=== PATIENT | male | born 1955 | race Caucasian/White ===

== ENCOUNTER 2023-12-30 07:34 | Outpatient (CLI) | payer MEDICARE, OTHER, SELFPAY ==
--- NOTE | 2023-12-30 07:39 | USCV_ITS ---
Minesh Beltre Age: 68 Gender: M : 1955 Exam Date: 12/30/2023 07:53 Ordering Phys: Isi Rod Technologist: JORGE Exam Location: [facility] [place] Indication: Renal Art Aneurysm Aortic Velocity @ SMA (cm/s) 100 RIGHT KIDNEY LEFT KIDNEY Velocity (cm/s) Velocity (cm/s) Sys/Ohara Sys/Ohara Resistive Index Resistive Index 74.6 / 24.6 0.67 Proximal Renal Artery 115.4 / 38.7 0.66 95.3 / 31.4 0.67 Mid Renal Artery 67.5 / 16.5 0.76 58.5 / 17.6 0.70 Distal Renal Artery 77.7 / 33.0 0.58 55.1 / 21.3 0.61 Hilar 63.7 / 22.1 0.65 18.4 / 6.9 0.62 Upper Pole 32.6 / 14.5 0.56 21.6 / 7.3 0.66 Mid Pole 30.3 / 11.1 0.64 25.2 / 9.1 0.64 Lower Pole 36.4 / 17.8 0.51 0.95 Renal Aortic Ratio 1.15 Accleration Time (sec) 216.00 Hilar 438.10 59.30 Upper Pole 218.40 133.00 Mid Pole 163.60 150.40 Lower Pole 266.60 10.8 Kidney Length (cm) 11.7 CONCLUSIONS No sonographic evidence of hemodynamically significant renal artery stenosis bilaterally. No hydronephrosis in either kidney RIght kidney 10.8cm and Left kidney 11.7cm Doug Diaz MD (Electronically Signed) Final Date: 02 January 2024 09:48 S
== END 2023-12-30 07:35 | disposition home or self-care (01) ==
LOC: RAD 07:37
PROVIDERS: PCP Family Medicine; Visit Provider Nurse Practitioner Family
DX: I72.2 Aneurysm of renal artery (principal)
CPT/HCPCS: 93975

== ENCOUNTER 2024-01-25 09:11 | Outpatient (CLI) | payer MEDICARE, OTHER, SELFPAY ==
--- NOTE | 2024-01-25 09:12 | USCV_ITS ---
Minesh Beltre Age: 68 Gender: M : 1955 Exam Date: 01/25/2024 09:25 Ordering Phys: Benja Stoner Technologist: USR Exam Location: [facility] [place] Indication: AAA HISTORY: Diameter (cm) AP x Transverse x Length Velocity (cm/s) Waveform Prox Aorta: 1.32 x 1.72 x 38.00 Triphasic Mid Aorta: 1.60 x 1.90 x 27.20 Triphasic Distal Aorta: 1.72 x 2.72 x 3.52 42.60 Triphasic Right Iliac Prox: 1.43 x 1.72 x 36.10 Triphasic Left Iliac Prox: 1.01 x 0.70 x 57.30 Triphasic Stent Prox Landing x x Aneurysmal Sac Max x x Lt Lat Sac Dim Rt Lat Sac Dim Stent Dist Landing x x Right Iliac Stent x x Left Iliac Stent x x Right Renal Art Left Renal Art FINDINGS: CONCLUSIONS Moderate abdominal aorta atherosclerosis Slightly ectatic distal abdominal aorta measuring 1.7 x 2.7 x 3.5cm AP x Trans x CC Aneurysmal RIGHT common iliac artery measuring 1.4 x 1.7cm Normal LEFT iliac artery Doug Diaz MD (Electronically Signed) Final Date: 25 January 2024 11:34 S
== END 2024-01-25 09:12 | disposition home or self-care (01) ==
LOC: RAD 09:11
PROVIDERS: PCP Family Medicine; Visit Provider Family Medicine
DX: Z13.6 Encounter for screening for cardiovascular disorders (principal); I71.21 Aneurysm of the ascending aorta, without rupture; I72.3 Aneurysm of iliac artery
CPT/HCPCS: 93978